=== PATIENT | female | born 1995 | race African-American/Black ===

== ENCOUNTER 2025-02-24 22:38 | Emergency (ER) | payer OTHER ==
[2025-02-24 23:37] LABS: HCG, SERUM QUANTITATIVE 11.7 MIU/ML (<4.2)
[2025-02-24 23:39] LABS: BLOOD UREA NITROGEN 11 MG/DL (9-23); CALCIUM LEVEL 9.5 MG/DL (8.5-10.1); CARBON DIOXIDE LEVEL 22 MMOL/L (20-31); CHLORIDE LEVEL 105 MMOL/L (98-107); CREATININE FOR GFR 0.56 MG/DL (0.55-1.30); GLOMERULAR FILTRATION RATE > 90.0 (>60); GLUCOSE, FASTING 199 MG/DL (60-100); POTASSIUM SERUM 3.9 MMOL/L (3.5-5.1); SODIUM LEVEL 137 MMOL/L (136-145)
[2025-02-25 00:58] VITALS: BP 137/80; TEMP 98.7; O2SAT 98
== END 2025-02-25 00:59 | disposition home or self-care (01) ==
LOC: M ED 22:38
DX: O20.9 Hemorrhage in early pregnancy, unspecified (principal); E11.9 Type 2 diabetes mellitus without complications; Z3A.00 Weeks of gestation of pregnancy not specified